=== PATIENT | female | born 1985 | race Caucasian/White ===

== ENCOUNTER 2017-03-19 12:34 | Emergency (ER) | payer SELFPAY ==
[~2017-03-19] VITALS: Ht 157.5 cm; Wt 63.6 kg
[2017-03-19 17:26] VITALS: BP 129/78
== END 2017-03-19 17:26 | disposition home or self-care (01) ==
LOC: ED 12:34
DX: G44.209 Tension-type headache, unspecified, not intractable (principal); Z88.0 Allergy status to penicillin

== ENCOUNTER 2019-12-05 17:02 | Inpatient (IN) | payer BC ==
[~2019-12-05] VITALS: Ht 157.5 cm; Wt 60.5 kg
[2019-12-05 17:10] VITALS: Ht 157.5 cm; Wt 60.5 kg
[2019-12-05 17:50] LABS: microscopic required? YES; urine erythrocyte 2+ (NEGATIVE)
[2019-12-05 17:54] LABS: BASOPHIL % 0.4 % (0-2); PLATELET COUNT 286 x10^3mcL (130-400)
[2019-12-05 17:55] LABS: RED CELL DISTRIBUTION WIDTH 15.7 % (11.5-14.5)
[2019-12-05 18:49] LABS: CARBON DIOXIDE 24.8 mmol/L (21-32); CHLORIDE SERUM 102 mmol/L (98-107); CREATININE SERUM 1.1 mg/dL (0.6-1.0); GFR1 > 60 mL/min; GLUCOSE SERUM 100 mg/dL (74-106); POTASSIUM SERUM 3.7 mmol/L (3.5-5.1); SODIUM SERUM 137 mmol/L (136-145)
[2019-12-05 18:54] LABS: ALKALINE PHOSPHATASE 91 U/L (46-116); ALT/SGPT 69 U/L (14-59); AST/SGOT 47 U/L (15-37); BILIRUBIN TOTAL 0.5 mg/dL (0.20-1.00); LIPASE 242 IU/L (73-393); TOTAL PROTEIN, SERUM 7.5 g/dL (6.4-8.2)
[2019-12-05 19:01] LABS: ALBUMIN 3.2 g/dL (3.4-5.0)
[2019-12-05 21:12] LABS: T3 TOTAL 0.67 ng/mL
[2019-12-05 21:28] LABS: FREE T4 1.07 ng/dL (0.76-1.46); FREE THYROXINE INDEX 2.2 ug/dL (1.4-4.5); T4(THYROXINE) 6.4 ug/dL (4.7-13.3)
[2019-12-05 21:30] LABS: MAGNESIUM 2.1 mg/dL (1.8-2.4)
[2019-12-05 22:11] LABS: AMPHETAMINE QUAL UR NONE DETECTED (See below)
[2019-12-05 23:13] VITALS: BP 115/68
[2019-12-06 05:45] VITALS: BP 97/63
[2019-12-06 06:07] LABS: BASOPHIL % 0.4 % (0-2); PLATELET COUNT 249 x10^3mcL (130-400)
[2019-12-06 06:10] LABS: RED CELL DISTRIBUTION WIDTH 15.7 % (11.5-14.5)
[2019-12-06 06:38] LABS: CALCIUM 7.4 mg/dL (8.5-10.1); CARBON DIOXIDE 24.3 mmol/L (21-32); CHLORIDE SERUM 109 mmol/L (98-107); CREATININE SERUM 0.9 mg/dL (0.6-1.0); GFR1 > 60 mL/min; GLUCOSE SERUM 92 mg/dL (74-106); MAGNESIUM 2.1 mg/dL (1.8-2.4); PHOSPHOROUS 2.9 mg/dL (2.5-4.9); POTASSIUM SERUM 3.3 mmol/L (3.5-5.1); SODIUM SERUM 141 mmol/L (136-145)
[2019-12-06 06:42] LABS: BILIRUBIN DIRECT 0.04 mg/dL (0.0-0.2); BILIRUBIN TOTAL 0.2 mg/dL (0.20-1.00); TOTAL PROTEIN, SERUM 6.3 g/dL (6.4-8.2)
[2019-12-06 06:52] LABS: ALBUMIN 2.6 g/dL (3.4-5.0)
[2019-12-06 08:45] VITALS: BP 106/63
[2019-12-06 12:50] VITALS: BP 121/60
[2019-12-06 17:28] VITALS: BP 110/74
[2019-12-06 20:25] VITALS: BP 104/68
[2019-12-07 05:47] VITALS: BP 105/61
[2019-12-07 06:51] LABS: BASOPHIL % 0.5 % (0-2); PLATELET COUNT 296 x10^3mcL (130-400)
[2019-12-07 06:52] LABS: RED CELL DISTRIBUTION WIDTH 15.9 % (11.5-14.5)
[2019-12-07 06:57] LABS: CALCIUM 8.2 mg/dL (8.5-10.1); CARBON DIOXIDE 26.3 mmol/L (21-32); CHLORIDE SERUM 107 mmol/L (98-107); CREATININE SERUM 0.7 mg/dL (0.6-1.0); GFR1 > 60 mL/min; GLUCOSE SERUM 89 mg/dL (74-106); POTASSIUM SERUM 3.8 mmol/L (3.5-5.1); SODIUM SERUM 142 mmol/L (136-145)
[2019-12-07 08:23] VITALS: BP 119/74
[2019-12-07] MEDS ORDERED: LEVOFLOXACIN500 M1 PO (10:54)
[2019-12-07 10:56] VITALS: BP 119/74
== END 2019-12-07 11:40 | disposition home or self-care (01) | DRG 872 ==
LOC: ED 17:02 → MU 19:57
PROVIDERS: Emergency Medicine; ADMIT Student in an Organized Health Care Education/Training Program
DX: A41.9 Sepsis, unspecified organism (principal); N10 Acute pyelonephritis; E44.0 Moderate protein-calorie malnutrition; D64.9 Anemia, unspecified; E83.39 Other disorders of phosphorus metabolism; R74.0 Nonspecific elevation of levels of transaminase and lactic acid dehydrogenase [LDH]; Z98.51 Tubal ligation status; Z87.440 Personal history of urinary (tract) infections; Z88.0 Allergy status to penicillin; Z68.23 Body mass index [BMI] 23.0-23.9, adult; Z79.899 Other long term (current) drug therapy
CPT/HCPCS: 84439; 87491; 87591; G0378; J0696; J1956; J3490; J7030; Q9967

== ENCOUNTER 2020-05-20 18:00 | Emergency (ER) | payer BC, SELFPAY ==
[~2020-05-20 18:00] MED LIST: LEVOFLOXACIN500 M1 PO
[2020-05-20 18:02] VITALS: BP 134/90
== END 2020-05-20 18:27 | disposition home or self-care (01) ==
LOC: ED 18:00
DX: U07.1 COVID-19 (principal); B34.9 Viral infection, unspecified; Z88.0 Allergy status to penicillin
CPT/HCPCS: U0003-CS